=== PATIENT | male | born 1990 | race Caucasian/White ===

== ENCOUNTER 2021-01-31 13:30 | Outpatient (CLI) | payer OTHER, SELFPAY ==
--- NOTE | 2021-01-31 13:43 | ECG_ITS ---
Measurements Intervals [place] Rate: 79 P: 72 OR: 164 QRS: 80 QRSD: 93 T: 70 QT: 358 QTc: 412 Interpretive Statements SINUS RHYTHM POSSIBLE LEFT ATRIAL ENLARGEMENT INCOMPLETE RIGHT BUNDLE BRANCH BLOCK BASELINE ARTIFACT- I, II, III BORDERLINE ECG Electronically Signed On 01-31-2021 15:29:27 [employer]ANK[employer]ER by Bob Barnes D.O.
[2021-01-31 13:53] LABS: Hematocrit 45.6 % (42.0-52.0); Hemoglobin 15.8 g/dL (14.0-18.0); Mean Corpuscular HGB Conc 34.6 g/dl (32-36); Mean Corpuscular Hemoglobin 29.8 pg (26-34); Mean Platelet Volume 10.1 fl (7.4-10.4); Platelet Count Result 246 k/mm3 (150-375); Red Cell Distribution Width 11.9 % (11.5-14.5); White Blood Count 6.4 K/mm3 (4.5-10.0)
[2021-01-31 14:09] LABS: Anion Gap 11 mmol/L (8-16); Blood Urea Nitrogen 20 mg/dL (9-20); Calcium 9.7 mg/dL (8.4-10.2); Carbon Dioxide 27 mmol/L (22-30); Chloride 102 mmol/L (98-107); Cholesterol 240 mg/dL (0-200); Estimated Glomerular Filt Rate > 60; Glucose 87 mg/dL (65-110); HDL Direct 102 mg/dL; Potassium 4.3 mmol/L (3.4-5.0); Sodium 140 mmol/L (137-145); Triglycerides 68 mg/dL (<150)
[2021-01-31 14:20] LABS: LDL Cholesterol Direct 104 mg/dL
== END 2021-01-31 13:31 | disposition home or self-care (01) ==
LOC: ANHLAB 13:34
PROVIDERS: PCP Family Medicine; Visit Provider Nurse Practitioner Family
DX: Z13.220 Encounter for screening for lipoid disorders (principal); R07.89 Other chest pain; Z13.29 Encounter for screening for other suspected endocrine disorder
CPT/HCPCS: 36415; 80048; 80061; 84443; 85027; 93005

== ENCOUNTER 2021-02-28 10:08 | Outpatient (CLI) | payer OTHER, SELFPAY ==
--- NOTE | 2021-03-04 16:40 | WPDHOLTEREM ---
Holter/Event Monitor Holter/Event Monitor Date of procedure: 02/28/21 Holter/Event Procedure: 48 Hr Holter Monitor Indications: Chest pain Conclusion: 1. 48 hour holter monitor on 02/28/21. 2. Underlying rhythm is sinus rhythm. HR range 44-164 bpm; average HR 76 bpm. HR at 164 bpm was at 16:51. 3. There are 6 premature supraventricular complexes. No supraventricular tachycardia. 4. No premature ventricular complexes. No ventricular tachycardia. 5. No sinoatrial or atrioventricular blocks. No significant pauses greater than 2 seconds. 6. No symptoms available for correlation.
== END 2021-02-28 10:09 | disposition home or self-care (01) ==
PROVIDERS: PCP Family Medicine; Visit Provider Nurse Practitioner Family
DX: R07.89 Other chest pain (principal)
CPT/HCPCS: 93225; 93226

== ENCOUNTER 2023-06-15 14:28 | Emergency (ER) | payer OTHER, SELFPAY ==
[2023-06-15 14:33] VITALS: BP 121/70; PULSE 75; RESP 16; TEMP 36.6; O2SAT 100
--- NOTE | 2023-06-15 14:40 | ED.URI ---
HPI - URI/Sore Throat General Stated Complaint: Cold Symptoms Time Seen by Provider: 06/15/23 14:40 History of Present Illness HPI Narrative: 33 y/o male presented for c/o sore throat, nasal congestion and cough for about 3 days. Endorses son tested positive for strep 2 days ago. Denies sob, wheezing, n/v/d/f/c. Not taking anything for symptoms. Related Data Allergies Allergy/AdvReac Type Severity Reaction Status Date / Time No Known Allergies Allergy Verified 02/05/23 08:15 Review of Systems Review of Systems: CONSTITUTIONAL: Denies body aches, fever, chills, or sweats. EYES: Denies visual changes, redness, or discharge. ENT: reports rhinorrhea, congestion, sore throat denies otalgia. CARDIOVASCULAR: Denies chest pain, palpitations, or edema. RESPIRATORY: Denies dyspnea. GASTROINTESTINAL: Denies abdominal pain, nausea, vomiting, or diarrhea. SKIN: Denies rash, itching, or wounds. MUSCULOSKELETAL: Denies back pain, joint pain, or myalgia. NEUROLOGIC: Denies headache PMFSH Past Medical History Medical History BMI 21.0-21.9, adult Body mass index (BMI) less than 20 Chest pain, unspecified Dietary counseling and surveillance (05/04/17) Encounter for general adult medical examination without abnormal findings Encounter for screening for lipoid disorders Nodule of neck Sore throat Family History Family History Father No problems noted. Mother Hypertension Sibling No problems noted. 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 TMs pearly fernandes with normal light reflex bilaterally; no tragal tenderness. Oropharynx erythematous without lesions. Tonsils enlarged 1+ with exudate. No drooling, no hoarseness, no trismus, uvula midline. No tripod positioning, hot potato voice, or soft palate swelling. NECK: Supple. No lymphadenopathy CHEST: Clear to auscultation, breath sounds equal. No respiratory distress, speaks in full sentences. HEART: Regular rate and rhythm. No murmur heard. SKIN: Warm, dry, no rash. NEURO: Alert and oriented x3. Course Course Emergency Course: Patient is aware of diagnosis, understands and agrees to treatment plan. Anticipatory guidance given. Patient agrees to follow-up as directed and is aware of reasons to seek care at the emergency department. Portions of this record may have been created with voice recognition software Level of Care: Express Care Visit MDM - URI/Sore Throat MDM Narrative Medical decision making narrative: POS strep result reviewed with pt. Advise supportive treatments. Patient is appropriate for outpatient treatment and follow-up. Differential Diagnosis Differential diagnosis: Likely upper respiratory infection, viral infection and pharyngitis Discharge Plan Discharge Clinical Impression: Strep pharyngitis Patient Disposition: Home, Self-Care Condition: Stable Instructions: Antibiotic Form, Strep Throat (ED) Additional Instructions: - Take the antibiotic as directed. Fever and sore throat typically resolve within one to three da
== END 2023-06-15 14:49 | disposition home or self-care (01) ==
PROVIDERS: Emergency Provider Nurse Practitioner Family; PCP Family Medicine
DX: J02.0 Streptococcal pharyngitis (principal)
CPT/HCPCS: 87880; 99213; G0463

== ENCOUNTER 2024-04-18 09:41 | Emergency (ER) | payer OTHER, SELFPAY ==
[2024-04-18 09:50] VITALS: BP 131/73; PULSE 111; RESP 16; TEMP 38.1; O2SAT 100
--- NOTE | 2024-04-18 09:53 | ED_ITS ---
HPI - URI/Sore Throat General Chief Complaint: Upper Respiratory Infection Stated Complaint: Upper Respiratory Symptoms Time Seen by Provider: 04/18/24 10:00 Source: patient and RN notes reviewed Mode of arrival: ambulatory Limitations: no limitations History of Present Illness HPI Narrative: 24 year old male presents with concern for cough, chest congestion, fever. Reports his has a lower respiratory tract infection. He reports he took cold medicine without relief. Reports symptoms started yesterday. MD elicited complaint: cough Related Data Allergies Allergy/AdvReac Type Severity Reaction Status Date / Time No Known Allergies Allergy Verified 04/18/24 09:51 Review of Systems Review of Systems: CONSTITUTIONAL: Reports malaise, fever. EYES: Denies visual changes, redness, or discharge. ENT: Reports rhinorrhea, congestion, sinus pain, otalgia and sore throat. CARDIOVASCULAR: Denies chest pain, palpitations, or edema. RESPIRATORY: Reports cough and chest congestion. Denies dyspnea. GASTROINTESTINAL: Denies abdominal pain, nausea, vomiting, diarrhea SKIN: Denies rash or itching. MUSCULOSKELETAL: Denies myalgia. NEUROLOGIC: Denies headache. All systems reviewed & are unremarkable except as noted in HPI and below PMFSH Past Medical History Medical History BMI 21.0-21.9, adult Body mass index (BMI) less than 20 Chest pain, unspecified Dietary counseling and surveillance (05/04/17) Encounter for general adult medical examination without abnormal findings Encounter for screening for lipoid disorders Nodule of neck Sore throat Family History Family History Father No problems noted. Mother Hypertension Sibling No problems noted. 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 There is no relevant family history pertinent to the presenting complaint Exam Narrative: GENERAL: Well-appearing, well-nourished, and in no acute distress. HEAD: Normocephalic EYES: PERRLA, conjunctivae clear ENT: Nares clear, turbinates edematous and erythematous, clear discharge. Mucous membranes moist. TM pearly fernandes with dull light reflex bilaterally; no tragal tenderness. Oropharynx not erythematous without lesions. Tonsils not enlarged and without exudate, no drooling, no hoarseness, no trismus, uvula midline. NECK: Supple. No lymphadenopathy CHEST: Scattered rhonchi, otherwise Clear to auscultation, breath sounds equal. No wheezing, rales, or stridor. No respiratory distress, speaks in full sentences. HEART: Regular rate and rhythm. No murmur heard. SKIN: Warm, dry, no rash. NEURO: Alert and oriented x3. PSYCH: Normal mood and affect Course Course Emergency Course: Patient is aware of diagnosis, understands and agrees to treatment plan. Anticipatory guidance given. Patient agrees to follow-up as directed and is aware of reasons to seek care at the emergency department. Portions of this record may have been created with voice recognition software Level of Care: Express Care Visit Vital Signs Vital signs: Vital Signs Oxygen Delivery Room Air 04/18/24 09:41 Temperature 100.6 F H 04/18/24 09:50 Pulse Rate 111 H 04/18/24 09:50 Respiratory Rate 16 04/18/24 09:50 Blood Pressure 131/73 04/18/24 09:50 Pulse Oximetry 100 04/18/24 09:50 Oxygen Delivery Room Air 04/18/24 09:41 Reviewed. MDM - URI/Sore Throat MDM Narrative Medical decision making narrative: Differential diagnosis considered: Beauchamp virus, strep pharyngitis, allergic rhinitis, upper respiratory tract infection, sinusitis, rhinosinusitis, nasopharyngitis. viral pharyngitis, otitis media, otitis externa, pneumonia, bronchitis, viral cough syndrome, viral syndrome, and influenza. Exam findings show no acute concerns or changes; patient is non-toxic appearing and is in no distress. Patient is appropriate for outpatient treatment and follow-up. Lab Data Attestation: I reviewed the patient's lab results. Labs: Lab Results 04/18/24 Range/Units 10:09 POC Influenza A Ag Negative (Negative) POC Influenza B Ag Negative (Negative) POC SARS CoV-2 Ag Negative (Negative) Critical Care Time Critical Care Time Critical Care Time: No Discharge Plan Discharge Clinical Impression: Lower respiratory tract infection Patient Disposition: Home, Self-Care Condition: Stable Instructions: Antibiotic Form, Acute Cough (ED) Additional Instructions: 1) Please follow-up with your primary care doctor in the next 1-2 days. 2) If you have any worsening of symptoms or any other urgent concerns please go to the ER. 3) Please take medications as prescribed and continue taking your home medications as usual. 4) Please read and follow information included in discharge instructions. Patient Language: Gambian Prescriptions: New doxycycline monohydrate 100 mg tablet 100 mg PO BID 7 Days Qty: 14 0RF methylprednisolone [Medrol (Yong)] 4 mg tablets,dose pack See Rx Instructions .ROUTE .COMPLEX Qty: 21 0RF Rx Instructions: orally per package directions No Action escitalopram oxalate 10 mg tablet See Rx Instructions .ROUTE .COMPLEX Qty: 30 3RF Dose Instruction: TAKE 1 TABLET BY MOUTH DAILY Rx Instructions: TAKE 1 TABLET BY MOUTH DAILY Follow-up/Referrals: Malik Cavazos MD [Primary Care Provider] - Time of Disposition: 10:15
[2024-04-18 10:11] LABS: EDCOVIDSCREEN Negative (Negative); EDINFLUASCREEN Negative (Negative); EDINFLUBSCREEN Negative (Negative)
== END 2024-04-18 10:21 | disposition home or self-care (01) ==
PROVIDERS: Emergency Provider Nurse Practitioner; PCP Family Medicine
DX: J22 Unspecified acute lower respiratory infection (principal); Z20.822 Contact with and (suspected) exposure to COVID-19
CPT/HCPCS: 87426; 87804; 99213; G0463

== ENCOUNTER 2024-07-21 15:41 | Emergency (ER) | payer OTHER, SELFPAY ==
--- NOTE | 2024-07-21 15:47 | ED.URI ---
HPI - URI/Sore Throat General Chief Complaint: Upper Respiratory Infection Stated Complaint: Sore Throat/Headache Time Seen by Provider: 07/21/24 15:46 Source: patient Mode of arrival: ambulatory Limitations: no limitations History of Present Illness HPI Narrative: Patient presents to [facility] with complaints of a sore throat, sinus pressure, and headache x1 week. He states his oldest son has strep. He has been taking ibuprofen [id number] for pain. Denies any shortness of breath or difficulty swallowing. Related Data Home Medications ?Medication ?Instructions ?Recorded ?Confirmed ?Last Taken ?Type No Home Medications 07/21/24 07/21/24 Unknown History Allergies Allergy/AdvReac Type Severity Reaction Status Date / Time No Known Allergies Allergy Verified 07/21/24 15:47 Review of Systems Review of Systems: CONSTITUTIONAL: Denies body aches, fever, chills, or sweats. EYES: Denies visual changes, redness, or discharge. ENT: Denies rhinorrhea or otalgia. Reports sore throat and congestion. CARDIOVASCULAR: Denies chest pain, palpitations, or edema. RESPIRATORY: Denies cough or dyspnea. GASTROINTESTINAL: Denies abdominal pain, nausea, vomiting, or diarrhea. GENITOURINARY: Denies dysuria or hematuria. SKIN: Denies rash, itching, or wounds. MUSCULOSKELETAL: Denies back pain, joint pain, or myalgia. NEUROLOGIC: Denies headache, numbness, tingling, or weakness. PSYCH: Denies depression or anxiety. All systems reviewed & are unremarkable except as noted in HPI and below PMFSH Past Medical History Medical History BMI 21.0-21.9, adult Chest pain, unspecified Dietary counseling and surveillance (05/04/17) Encounter for general adult medical examination without abnormal findings Encounter for screening for lipoid disorders Nodule of neck Sore throat Body mass index (BMI) less than 20 Family History Family History Father No problems noted. Mother Hypertension Sibling No problems noted. 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 Please see nursing chart for further information. There is no relevant family history pertinent to the presenting complaint. Exam Narrative: GENERAL: Well-appearing, well-nourished, and in no acute distress. EYES: EOMI. No redness or drainage. Conjunctivae normal. ENT: Mucous membranes pink and moist. Nares clear. No rhinorrhea. TMs fluid filled but intact. Throat Erythematous without tonsillar exudate, uvula midline. Nasal congestion noted. NECK: Normal AROM. Supple. No lymphadenopathy. CHEST: No respiratory distress. Clear to auscultation. HEART: Regular rate and rhythm. No murmur appreciated. Normal peripheral pulses. ABDOMEN: Soft, nontender, nondistended, normal active bowel sounds. SKIN: Warm, dry, no rash. Capillary refill normal. Normal skin turgor. NEURO: No focal deficits. Alert and oriented x3. Gait steady. PSYCH: Normal affect. No signs of depression or anxiety. Course Course Level of Care: Express Care Visit MDM - URI/Sore Throat MDM Narrative Medical decision making narrative: Discussed physical exam findings. Treated with abx for known exposure and symptoms present for a week. Advised supportive measures and signs/symptoms to go to the ER. Pt is appropriate for outpt treatment and follow up. Differential Diagnosis Differential diagnosis: Likely upper respiratory infection, viral infection, pharyngitis and other (strep throat) Critical Care Time Critical Care Time Critical Care Time: No Discharge Plan Discharge Clinical Impression: Pharyngitis Qualifiers: Pharyngitis/tonsillitis etiology: unspecified etiology Qualified Code(s): J02.9 - Acute pharyngitis, unspecified Sinusitis Qualifiers: Sinusitis location: frontal Chronicity: acute Recurrence: non-recurrent Qualified Code(s): J01.10 - Acute frontal sinusitis, unspecified Patient Disposition: Home Condition: Stable Instructions: Antibiotic Form Additional Instructions: Rapid strep swab was negative today. Your swab will be sent for a culture. The antibiotic you are getting will cover strep as well, so you will not need any additional medications if it were to be positive. Take antibiotic as prescribed. Recommendations: Flonase spray and Zyrtec for sinus congestion Cough syrup may cause drowsiness; avoid driving or take it at night time. Tylenol every 8 hours as needed for pain/fever Soft foods, cool liquids, warm tea. Gargle with warm saltwater twice a day. Chloraseptic spray and throat lozenges. Rest and stay hydrated. --Follow up with your PCP --Go to the ER immediately if you cannot swallow your saliva, trouble breathing/wheezing, throat swelling, pain is persistent and severe Patient Language: Lithuanian Prescriptions: New amoxicillin-pot clavulanate 875-125 mg tablet 1 tablet PO Q12H 10 Days Qty: 20 0RF No Action No Home Medications Follow-up/Referrals: Malik Cavazos MD [Primary Care Provider] - Time of Disposition: 16:04
[2024-07-21 15:52] VITALS: BP 111/68; PULSE 88; RESP 16; TEMP 36.3; O2SAT 100
[2024-07-21 16:00] LABS: EDSTREPNEGPOS1 Negative (Negative)
== END 2024-07-21 16:15 | disposition home or self-care (01) ==
PROVIDERS: PCP Family Medicine
DX: J02.9 Acute pharyngitis, unspecified (principal); J01.10 Acute frontal sinusitis, unspecified
CPT/HCPCS: 87081; 87880; 99213; G0463